=== PATIENT | male | born 1975 | race Caucasian/White ===

== ENCOUNTER → 2018-06-09 18:01 | Outpatient (CLI) | payer OTHER, SELFPAY ==
--- NOTE | 2018-06-09 18:07 | DI.RAD.S_ITS ---
PROCEDURE: XR LUMBAR SPINE 2-3V INDICATIONS: low back pain TECHNIQUE: 3 views of the lumbar spine were acquired. COMPARISON: None. FINDINGS: Bones: 5 [id number] vertebrae are present. There is normal bony alignment. No vertebral body compression fractures. No suspicious bony lesions. Soft tissues: Overlying bowel gas pattern is normal. No suspicious soft tissue calcifications. IMPRESSION: No acute radiographic findings. Dictated by: Cathi Degroot M.D. on 06/09/2018 at 18:19 Approved by: Cathi Degroot M.D. on 06/09/2018 at 18:20
== END ==
PROVIDERS: Visit Provider Physician Assistant
DX: M54.5 Low back pain (principal)
CPT/HCPCS: 72100

== ENCOUNTER → 2024-09-09 09:11 | Outpatient (CLI) | payer OTHER, SELFPAY ==
--- NOTE | 2024-09-09 09:13 | DI.ECHO.S_ITS ---
[facility]+ [facility] : : [id number] : : [place] : : [id number] : : Phone: [phone] Echocardiogram Report + + :Name: LYNNE LEONE Study Date: 09/09/2024 Height: 69 in : :Hospital ReadingLocation: Weight: 225 lb : : Gender: Male BSA: 2.2 m2 : :: 1975 Age: 49 yrs BP: 118/79 mmHg: :Reason For Study: CAD : :Ordering Physician: TEODORO, : :LOIS Kitchen Performed By: Nichol Maldonado : :Referring: LOIS WORLEY : + + Interpretation Summary The ejection fraction is estimated to be 55-60%. There is hypokinesis of the mid to distal lateral wall and inferoapical wall. Diastolic parameters suggest probable normal left ventricular diastolic function and normal filling pressures. The right ventricle is normal in size and function. Pulmonary artery pressures cannot be estimated because of the lack of a measurable TR jet velocity but the IVC suggests a CVP of around 3 mmHg. Compared to the prior study 06/20/2024, the ascending aorta measurement is now within normal range. Procedure: A two-dimensional transthoracic echocardiogram with color flow and Doppler was performed. The study quality was technically adequate. Comparison is made with the echocardiogram of 06-20-24. The heart rate ranged between 67-69 bpm during the study. Left Ventricle: The left ventricle is normal in size and wall thickness. The ejection fraction is estimated to be 55-60%. There is hypokinesis of the mid to distal lateral wall and inferoapical wall. Diastolic parameters suggest probable normal left ventricular diastolic function and normal filling pressures. Right Ventricle: The right ventricle is normal in size and function. Atria: The left atrial size is normal. Right atrial size is normal. The interatrial septum grossly appears intact with no obvious evidence for an atrial septal defect. Mitral Valve: The mitral valve is normal. There is trace mitral regurgitation. Aortic Valve: The aortic valve opens well. The aortic valve is trileaflet. There is no aortic valve stenosis. No aortic regurgitation is present. Tricuspid Valve: The tricuspid valve leaflets are thin and pliable. There is a trace or physiologic amount of tricuspid regurgitation. Pulmonary artery pressures cannot be estimated because of the lack of a measurable TR jet velocity but the IVC suggests a CVP of around 3 mmHg. Pulmonic Valve: The pulmonic valve is not well seen, but is grossly normal. There is no pulmonic valvular regurgitation. Great Vessels: The aortic root is normal size. The ascending aorta is normal in size. The aortic arch is normal in size. The IVC is of normal diameter and collapses greater than 50% with a sniff. This suggests a low right atrial pressure of 3 mm Hg. Pericardium/ Pleura There is no pericardial effusion. There is no pleural effusion. MMode/2D Measurements & Calculations LVIDd: 4.9 cm LVOT diam: 2.4 cm LVIDs: 3.5 cm Ao root diam: 3.5 cm FS: 28.7 % asc Aorta Diam: 3.4 cm EPSS: 0.86 cm Ao Arch Diam (Prox Trans): 2.8 cm IVSd: 0.91 cm LVPWd: 1.0 cm LV mcconnell. diameter/BSA (cm/m^2): 2.3 LV sys. diameter/BSA (cm/m^2): 1.6 LA A2 area: 15.3 cm2 RA long axis: 5.0 cm LA A4 area: 18.3 cm2 RA area: 10.4 cm2 LA length (vol): 5.2 cm RA vol: 18.7 ml LA vol: 45.4 ml RA : 8.6 ml/m2 LA vol index: 20.9 ml/m2 IVC diam: 1.7 cm RVD1 (basal): 2.5 cm TAPSE: 1.8 cm Doppler Measurements & Calculations Ao V2 max: 113.9 cm/sec LVOT Max Z[place]: 80.7 cm/sec Ao V2 mean: 84.8 cm/sec LV V1 max P.6 mmHg Ao max P.2 mmHg LV V1 VTI: 19.9 cm Ao mean P.2 mmHg JULIUS(I,D): 3.3 cm2 Ao V2 VTI: 27.7 cm JULIUS(V,D): 3.2 cm2 sev ratio: 0.72 JULIUS indexed to BSA (cm^2/m^2): 1.5 MV E max zaire: 86.0 cm/sec PA V2 max: 79.6 cm/sec MV A max zaire: 84.5 cm/sec PA V2 mean: 54.9 cm/sec MV E/A: 1.0 PA mean P.4 mmHg Med Peak E' Zaire: 6.1 cm/sec PA pr(Accel): 17.3 mmHg E/E' med: 14.1 Lat Peak E' Zaire: 10.1 cm/sec E/E' lat: 8.5 E/e' average: 11.3 MV dec time: 0.23 sec SV(LVOT): 90.5 ml Reading Physician:03:34 PM
== END ==
LOC: ECHO 09:12
PROVIDERS: Referring Provider Internal Medicine Cardiovascular Disease; Visit Provider Internal Medicine Cardiovascular Disease
DX: I25.10 Atherosclerotic heart disease of native coronary artery without angina pectoris (principal)
CPT/HCPCS: 93306